=== PATIENT | female | born 1970 | race Two or more races ===

== ENCOUNTER 2024-01-12 10:00 | Outpatient (RCR) | payer MEDICAID, SELFPAY ==
--- NOTE | 2023-12-31 14:12 | PT.ODAYNRPT ---
PT Outpatient Daily Note OP Daily Note Outpatient Physical Therapy Treatment Date: 12/31/23 Visit Reasons: lEFT ROTATR CUFF Subjective: Pt reports shoulder is doing better, still feels she needs to work on strength. Objective: Please see flow sheet for ther ex list. Assessment: Progressing strengthening interventions as per post op protocol. Plan: Continue with POC. Length of Time (minutes) of Treatment: 30 Minutes Procedure Charges Therapeutic Exercise 30 minutes: Yes
--- NOTE | 2024-01-04 15:08 | PT.ODAYNRPT ---
PT Outpatient Daily Note OP Daily Note Outpatient Physical Therapy Treatment Date: 01/04/24 Visit Reasons: lEFT ROTATR CUFF Subjective: Pt's shoulder feels much better. Pt mention she's notice almost full ROM. There's still weakness when she brings her arm down Objective: Please see flow chart for list of ther ex performed Assessment: Progressing with shoulder AROM in all plane and added more rotator cuff strengthening exercises with good tolerance Plan: Continue with PT Length of Time (minutes) of Treatment: 30 Minutes Procedure Charges Therapeutic Exercise 30 minutes: Yes
--- NOTE | 2024-01-07 13:34 | PT.ODS1RPT ---
PT OP Progress/Discharge Note Date of Service: 01/07/24 Progress Note/DC Note Progress Note/Discharge Note: Progress Note Patient Information Visit Reasons: lEFT ROTATR CUFF Medical Diagnosis: Left Rotator Cuff Repair Treatment Dx #1: Left Shoulder Weakness Service Continue Service or Discharge: Continue Service Certification Date Certification Dates: 01/07/24 to 04/08/24 Status Subjective: Pt's shoulder feels much better and will like to see if she can return back to work. Pt still notice weakness and difficulty reaching behind the back. Pt can now perform self care, cook, clean, and light lifting. Pt wants to continue to work on strengthening to be able to return back to work. Objective: Left Shoulder AROM Flexion: 160 deg Abduction: 150 deg External Rotation: 90 deg Internal Rotation: 70 deg Left Shoulder MMTs: grossly 3+/5 Left Scapula MMTs: grossly 3/5 HBB: Thumb at T12 Assessment: Pt progressing with shoulder mobility and strength allowing her to resume light ADLs with less limitation. Pt still has difficulty reaching behind her back as well as perform lifting activities due to rotator cuff weakness. Pt has not met set goals in therapy and will continue to benefit from physical therapy; thank you for your referrals. Plan: Continue with PT/POC and add 8 sessions (2 x wk for 4 wks) Procedure Charges Therapeutic Exercise 30 minutes: Yes
--- NOTE | 2024-01-12 10:27 | PT.ODAYNRPT ---
PT Outpatient Daily Note OP Daily Note Outpatient Physical Therapy Treatment Date: 01/12/24 Visit Reasons: lEFT ROTATR CUFF Subjective: Pt's shoulder feels better and will like a theraband for home to start HEP as she's waiting for more visits. Objective: Please see flow chart for list of ther ex performed Assessment: continues to progressing with strengthing increase shoulder 4 way to red TB with good tolerance and form in all plane Plan: Continue with PT Length of Time (minutes) of Treatment: 30 Minutes Procedure Charges Therapeutic Exercise 30 minutes: Yes
== END 2024-01-29 23:59 | disposition home or self-care (01) ==
LOC: CPTX 10:00
PROVIDERS: PCP Orthopaedic Surgery; Referring Provider Orthopaedic Surgery; Visit Provider Orthopaedic Surgery
DX: M25.512 Pain in left shoulder (principal); R53.1 Weakness; Z98.890 Other specified postprocedural states
CPT/HCPCS: 97110

== ENCOUNTER → 2024-02-29 | Outpatient (CLI) | payer MEDICAID, SELFPAY ==
--- NOTE | 2024-03-10 13:19 | PT.ODS1RPT ---
PT OP Progress/Discharge Note Date of Service: 03/10/24 Progress Note/DC Note Progress Note/Discharge Note: DC Note Patient Information Visit Reasons: Pain in right shoulder Service Discharge Date: 03/10/24 Status Assessment: Pt has been seen for 11 visits (eval + 10 visits). At this time Pt will be d/c from care due to plan of care 03/03/24. Pt did not meet set goals in therapy; thank you for you referrals
== END | disposition home or self-care (01) ==
LOC: SMRI 15:19
PROVIDERS: PCP Family Medicine; Referring Provider Orthopaedic Surgery; Visit Provider Orthopaedic Surgery
DX: Z53.8 Procedure and treatment not carried out for other reasons (principal)

== ENCOUNTER → 2024-02-29 | Outpatient (CLI) | payer MEDICAID, SELFPAY ==
--- NOTE | 2024-02-29 14:15 | XR_ITS ---
Examination: Breast ultrasound, unilateral, left complete Date and time of exam: February 29, 2024 1421 hrs. Indications: Inverted left nipple and agenesis note is beginning 2 years ago Technique: Real-time gonzales scale ultrasonographic imaging performed left breast including all 4 quadrants as well as nipple retroareolar and axillary region. Findings: No cystic or solid mass Impression: BI-RADS Category 1: Negative study
--- NOTE | 2024-02-29 14:45 | XR_ITS ---
Examination: Diagnostic digital mammography, bilateral Computer aided detection 3-D breast Tomosynthesis, bilateral Date and time of exam: February 29, 2024 1432 hrs. Comparison August 26, 2021 Indications: Inverted left nipple with itchiness beginning 2 years ago Technique: Nonmagnified MLO, CC views of the breasts to been obtained, reconstructed from 3-D Tomosynthesis images. R2 computer aided detection program utilized for evaluation of suspicious masses and/or abnormal calcifications. 3-D Tomosynthesis images obtained. Findings: The breasts are heterogeneously dense, which may obscure small masses Benign calcifications No interval suspicious masses Impression: BI-RADS Category 0: Incomplete: Need additional imaging evaluation If the patient's nipple inversion is an interval finding beginning 2 years ago, recommend breast MRI follow-up to exclude underlying left breast malignancy.
== END | disposition home or self-care (01) ==
PROVIDERS: PCP Physician Assistant; Referring Provider Physician Assistant; Visit Provider Physician Assistant
DX: R92.8 Other abnormal and inconclusive findings on diagnostic imaging of breast (principal)
CPT/HCPCS: 76641; 77062; 77066; G0279

== ENCOUNTER → 2024-05-09 | Outpatient (CLI) | payer MEDICAID, SELFPAY ==
--- NOTE | 2024-05-09 09:55 | XR_ITS ---
Indication: Cervical spine 3 views Technique: AP lateral cervical spine AP odontoid cervical spine 3 views Exam date and time: 2024 at 06 hours Indications: Neck pain beginning 3 months ago. Findings: Minimal anterolisthesis C4 on C5 Advanced degenerative disc disease C6-C7 Mild cervical spondylosis Intact odontoid No cervical fracture Impression: Advanced degenerative disc disease C6-C7
== END | disposition home or self-care (01) ==
PROVIDERS: PCP Physician Assistant; Referring Provider Orthopaedic Surgery; Visit Provider Orthopaedic Surgery
DX: M50.323 Other cervical disc degeneration at C6-C7 level (principal)
CPT/HCPCS: 72040

== ENCOUNTER → 2024-05-30 | Outpatient (CLI) | payer MEDICAID, SELFPAY ==
--- NOTE | 2024-05-30 16:30 | XR_ITS ---
MRI shoulder, right, without contrast. Date and time: May 30, 2024 1653 hours INDICATIONS: Right shoulder pain 6 years decreased range of motion Limited abduction Technique: Multiple axial, sagittal and coronal sections of the shoulder have been obtained. Siemens high-resolution 1.5 Lorna MRI scanner is utilized. Axial fat-suppressed sections, TR 2350, TE 18 T2-weighted coronal fat-saturated images, TR 3500, TE 7100 T1-weighted coronal images, TR 500, TE 15 T2-weighted sagittal fat-saturated images, TR 3500, TE 57 T1-weighted sagittal sections, TR 504, TE 13. Findings: Supraspinatus tendon insertion is intact. Infraspinatus tendon insertion is intact. Subscapularis insertion is intact. Subscapularis bursa is not seen. Long head of the biceps is in the bicipital groove. No definite tear of the biceps superior labral anchor is seen. Retraction of the musculotendinous junction of the rotator cuff is not seen . Tendinosis pattern is mild. Distance between the acromium and humeral head is 5.4 mm Atrophy of the supraspinatus muscle is moderate. Atrophy of the infraspinatus muscle is moderate. Sagittal sections demonstrate a horizontal acromion. Acromioclavicular joint demonstrates mild osteoarthritis . Osacromiale is not identified. Intact labral margins. Bony glenoid fossa on the sagittal sections does not demonstrate osseous defect. Occult fracture or area of avascular necrosis is not seen. Acromioclavicular joint separation is not visible. Defect in the posterolateral margin of the humeral head is not seen Impression: Rotator cuff intact Mild rotator cuff tendinosis No labral tears
== END | disposition home or self-care (01) ==
PROVIDERS: PCP Physician Assistant; Referring Provider Orthopaedic Surgery; Visit Provider Orthopaedic Surgery
DX: M67.813 Other specified disorders of tendon, right shoulder (principal)
CPT/HCPCS: 73221

== ENCOUNTER → 2024-06-22 | Outpatient (CLI) | payer MEDICAID, SELFPAY ==
--- NOTE | 2024-06-22 13:00 | XR_ITS ---
Examination: MRI breasts bilateral without intravenous contrast MRI breast bilateral with intravenous contrast Exam date and time: June 22, 2024 1336 hours Comparison mammogram February 29, 2024, breast sonography February 29, 2024 Exam date and time: April 24, 2024 1336 hours INDICATIONS: Nipple retraction beginning 2 years ago on the left with breast pain TECHNIQUE AND FINDINGS: Multiple bilateral breast MRI images pre and post 14 cc gadolinium Heterogeneous background breast architecture Minimal background breast enhancement No dominant breast lesions Left nipple is retracted on this study Subtle increased radiodensity in the retroareolar region left breast on the mammographic images No discrete mass No chest wall mass No pathologic axillary lymphadenopathy IMPRESSION: BI-RADS Category 4: Suspicious for malignancy Recommend ultrasound-guided biopsies retroareolar region left breast to exclude early breast malignancy
== END | disposition home or self-care (01) ==
PROVIDERS: PCP Physician Assistant; Referring Provider Physician Assistant; Visit Provider Physician Assistant
DX: N64.4 Mastodynia (principal)
CPT/HCPCS: 77049; A9579; C8908

== ENCOUNTER → 2024-09-14 | Outpatient (CLI) | payer MEDICAID, SELFPAY ==
[2024-09-13 11:16] LABS: Basophils # (Auto) 0.1 Thou/mm3 (0.0-0.2); Basophils % (Auto) 1 % (0-2.5); Eosinophils # (Auto) 0.1 Thou/mm3 (0.0-0.5); Eosinophils % (Auto) 1 % (0-10); Hematocrit 41.7 % (36.0-46.0); Hemoglobin 13.4 g/dL (12.0-16.0); Immature Granulocytes Auto 0.02 Thou/mm3 (0.00-0.00); Lymphocytes # (Auto) 3.0 Thou/mm3 (1.0-4.8); Lymphocytes % (Auto) 35 % (10-50); Mean Corpuscular HGB Conc 32.1 g/dl (31.0-37.0); Mean Corpuscular Hemoglobin 28.8 pg (25.0-35.0); Mean Corpuscular Volume 90 fL (80-100); Monocytes # (Auto) 0.6 Thou/mm3 (0.0-0.8); Monocytes % (Auto) 7 % (0-12); Neutrophils # (Auto) 4.7 Thou/mm3 (1.8-7.7); Neutrophils % (Auto) 56 % (37-80); Nucleated Red Blood Cell # 0.00 Thou/mm3 (0.00-0.00); Nucleated Red Blood Cell % 0 /100 WBC (0); Platelet Count 351 Thou/mm3 (140-440); RDW Standard Deviation 48.1 fL (36.4-46.3); Red Blood Count 4.65 Miln/mm3 (4.00-5.20); White Blood Count 8.4 Thou/mm3 (3.6-11.0)
[2024-09-13 11:23] LABS: INR 0.9 (0.9-1.3); Partial Thromboplastin Time 28.0 Seconds (22.0-36.0); Prothrombin Time 10.4 Seconds (9.0-12.2)
--- NOTE | 2024-09-14 08:00 | XR_ITS ---
Examination: Breast ultrasound, unilateral, left complete Date and time of exam: September 14, 2024 0919 hours INDICATIONS: Inverted nipple one year, MRI breast study suspicious increased density retroareolar region left breast Technique: Real-time gonzales scale ultrasonographic imaging performed left breast including all 4 quadrants as well as nipple retroareolar and axillary region. Findings: No cystic or solid mass noted Dilated retroareolar ducts IMPRESSION: BI-RADS Category 3: Probably benign findings Recommend 3 month left breast sonogram follow-up
== END | disposition home or self-care (01) ==
PROVIDERS: Radiology Diagnostic Radiology; PCP Physician Assistant; Referring Provider Physician Assistant; Visit Provider Physician Assistant
DX: R92.332 Mammographic heterogeneous density, left breast (principal); Z53.8 Procedure and treatment not carried out for other reasons; Z01.812 Encounter for preprocedural laboratory examination
CPT/HCPCS: 36415; 76641; 85025; 85610; 85730

== ENCOUNTER → 2024-09-27 | Outpatient (CLI) | payer MEDICAID, SELFPAY ==
--- NOTE | 2024-09-27 08:00 | XR_ITS ---
Examination: MRI cervical spine without intravenous contrast Date and time of exam: September 27, 2024 0813 hours INDICATIONS: Neck pain radiating to both shoulders numbness in both hands 6 months Technique: Multiple axial and sagittal sections of the cervical spine to been obtained. T2 weighted sagittal sections, TR 3, 270, TE 117 T1-weighted sagittal sections, TR 500, TE 11 T1-weighted axial sections, TR 607, TE 12, axial sections TR 18, TE 27 and T2 weighted transverse sections, TR 3920, TE 122. Findings: Straightening normal cervical lordosis. No cervical fracture Intact odontoid Diffuse cervical disc desiccation Mild disc narrowing C6-C7 No localized enlargement cervical cord C2-C3 no disc protrusion C3-C4 advanced left neural foraminal stenosis C4-C5 3 mm central left paracentral osteophyte disc complex, advanced left neural foraminal stenosis C5-C6 moderate left neural foraminal stenosis C6-C7 3 mm central subarticular osteophyte disc complex, advanced bilateral neural foraminal stenosis C7-T1 no disc protrusion IMPRESSION: C3-C4 C4-C5 advanced left neural foraminal stenosis C5-C6 moderate left neural foraminal stenosis C6-C7 3 mm central subarticular osteophyte disc complex, advanced bilateral neural foraminal stenosis
== END | disposition home or self-care (01) ==
LOC: SMRI 07:43
PROVIDERS: PCP Physician Assistant; Referring Provider Orthopaedic Surgery; Visit Provider Orthopaedic Surgery
DX: M48.02 Spinal stenosis, cervical region (principal); M25.78 Osteophyte, vertebrae
CPT/HCPCS: 72141